=== PATIENT | female | born 1990 | race Caucasian/White ===

== ENCOUNTER 2018-01-03 05:46 | Inpatient (IN) | payer BC ==
[2017-12-30 11:16] VITALS: BMI 29.8
--- NOTE | 2018-01-02 19:09 | P.HPOB ---
History of Present Illness H&P Date: 01/03/18 Chief Complaint: Breech presentation, primary section This is a 27-year-old female 2 para 1 with an estimated date of confinement of 01/09/2018, estimated gestational age of 39 and one sevenths weeks, who presents to labor and delivery for primary section secondary to breech presentation. She has been getting weekly ultrasounds for position and fluid. Her fluid has been borderline low but her nonstress tests have been reactive. At her last ultrasound, baby was still breech. She admits to good movement. She complains of irregular contractions. labs: Hepatitis B surface antigen-negative RPR-nonreactive Rubella-immune Blood type-A+ Antibody screen-negative HIV-nonreactive Hemoglobin-12.6 Toxoplasma screen-negative Random glucose-96 One hour Glucola-138 Three-hour Glucola-within normal limits Group B streptococcus-negative Obstetrical history: . History of 1 vaginal delivery at term. Gynecologic history: No history of sexual transmitted diseases. Social history: She is . She is currently not working outside the home. Review of Systems Constitutional: Denies chills, Denies fever Eyes: denies blurred vision, denies pain Ears, nose, mouth and throat: Denies headache, Denies sore throat Cardiovascular: Denies chest pain, Denies shortness of breath Respiratory: Denies cough Gastrointestinal: Denies abdominal pain, Denies diarrhea, Denies nausea, Denies vomiting Genitourinary: Reports pelvic pain, Reports Musculoskeletal: Reports low back pain Integumentary: Denies pruritus, Denies rash Neurological: Denies numbness, Denies weakness Psychiatric: Denies anxiety, Denies depression Past Medical History Past Medical History: No Reported History History of Any Multi-Drug Resistant Organisms: None Reported Past Surgical History: No Surgical Hx Reported Additional Past Anesthesia/Blood Transfusion Reaction / Comment(s): Has never had anesthesia. Past Psychological History: No Psychological Hx Reported Smoking Status: Never smoker Past Alcohol Use History: None Reported Past Drug Use History: None Reported - Past Family History Father Additional Family Medical History / Comment(s): Heart disease Medications and Allergies Home Medications Medication Instructions Recorded Confirmed Type Gah-Latd-Zypem Acid 1 cap PO DAILY 02/15/16 02/16/16 History [-U Capsule (formulary)] Allergies Allergy/AdvReac Type Severity Reaction Status Date / Time No Known Allergies Allergy Verified 12/30/17 11:05 Exam Osteopathic Statement: *. No significant issues noted on an osteopathic structural exam other than those noted in the History and Physical/Consult. HEENT: Within normal limits Heart: Regular rate and rhythm Lungs: Clear to auscultation bilaterally Abdomen: Soft, Cervix: Fingertip/60%/-3 heart tones: 150s by Doppler Extremities: Negative Homans Assessment and Plan (1) 39 weeks gestation of Status: Acute Code(s): Z3A.39 - 39 WEEKS GESTATION OF SNOMED Code( s): 35148968 (2) Breech presentation Status: Acute Code(s): O32.1XX0 - MATERNAL CARE FOR BREECH PRESENTATION, UNSP SNOMED Code(s): 9965092 Plan: Proceed with primary low transverse section. I have discussed the risks, benefits, and alternative therapies for the above- mentioned procedure and for both sedation/anesthesia as well as necessary blood products administration, if indicated, as they pertain to this patient. The patient has indicated her understanding and acceptance of the risks and procedures discussed.
[2018-01-03] MEDS ORDERED: ceFAZolin IN SWFI 2 GM/20 ML SYRINGE IVP ONE (06:00)
[2018-01-03] MEDS ORDERED: CITRIC ACID-SODIUM CITRATE 15 ML CUP PO ONE (06:00)
[2018-01-03] MEDS ORDERED: LACTATED RINGERS 1,000 ML IV ONE (06:00)
[2018-01-03 06:23] LABS: Basophils # (A) 0.1 k/uL (0-0.2); Basophils % (A) 1 %; Eosinophils # (A) 0.2 k/uL (0-0.7); Eosinophils % (A) 2 %; HCT 33.4 % (34.0-46.0); Lymphocytes # (A) 2.1 k/uL (1.0-4.8); Lymphocytes % (A) 17 %; MCH 27.4 pg (25.0-35.0); MCV 82.9 fL (80.0-100.0); Mean Platelet Volume 7.2; Monocytes # (A) 0.7 k/uL (0-1.0); Monocytes % (A) 6 %; Neutrophils # (A) 9.3 k/uL (1.3-7.7); Neutrophils % (A) 74 %; Platelet Count 289 k/uL (150-450); RBC 4.02 m/uL (3.80-5.40); RDW 13.6 % (11.5-15.5); WBC 12.7 k/uL (3.8-10.6)
[2018-01-03] MEDS ORDERED: NALBUPHINE 10 MG/ML VIAL (10ML MDV) ONE (08:09)
[2018-01-03] MEDS ORDERED: KETOROLAC 30 MG/ML 1 ML VIAL ONE (08:09)
[2018-01-03] MEDS ORDERED: ONDANSETRON 4 MG/2 ML VIAL ONE (08:09)
[2018-01-03] MEDS ORDERED: ePHEDrine SULFATE/0.9% NACL/PF 50 MG/5 ML SYRINGE IV ONE (08:09)
[2018-01-03] MEDS ORDERED: OXYTOCIN 10 UNIT/ML 1 ML VIAL ONE (08:09)
--- NOTE | 2018-01-03 08:52 | P.OP ---
Date of Procedure: 01/03/18 Preoperative Diagnosis: 1. Intrauterine at 39 and one sevenths weeks. 2. Breech presentation. 3. And borderline oligohydramnios. Postoperative Diagnosis: Same Procedure(s) Performed: Primary low transverse section Anesthesia: spinal (Duramorph) Surgeon: Ne Harris Facility Assistant #1: Dutch Orozco Estimated Blood Loss (ml): 500 Pathology: other (Placenta) Condition: stable Disposition: floor Indications for Procedure: This is a 27-year-old female 2 para 1 at 39 and one sevenths weeks who presents for primary section secondary to breech presentation and borderline oligohydramnios. I have discussed the risks, benefits, and alternative therapies for the above- mentioned procedure and for both sedation/anesthesia as well as necessary blood products administration, if indicated, as they pertain to this patient. The patient has indicated her understanding and acceptance of the risks and procedures discussed. Operative Findings: A viable male infant is noted in the lore breech presentation with scores of 9 at 1 minute and 9 at 5 minutes and weight of 7 lbs. 12 oz. Normal uterus tubes and ovaries are noted. Description of Procedure: The patient is taken to the operating room where she is placed in the dorsal supine position with leftward tilt after spinal Duramorph anesthesia is given. She is prepped and draped in the normal sterile fashion. Skin was tested and found to be adequately anesthetized. A Pfannenstiel skin incision was made with a scalpel. A second knife was used to carry the incision down to the underlying layer of fascia. The fascia was nicked in the midline with a scalpel and then extended laterally bilaterally with Heard scissors. The anterior lip of the fascia was grasped with 2 Hung clamps and then dissected off the underlying rectus muscle in the midline with Heard scissors. The inferior aspect of the fascial incision was grasped with 2 Hung clamps and dissected off the underlying rectus muscle and the midline with Heard scissors. Next the peritoneum layer was tented up with 2 hemostats and then entered sharply with the scalpel. The incision is extended superiorly and inferiorly with Metzenbaum scissors. Next a DeLee retractor is placed. The vesicouterine peritoneum is entered sharply with Metzenbaum scissors and extended laterally bilaterally with Metzenbaum scissors and then the bladder flap is pushed inferiorly. The lower uterine segment is incised in transverse fashion with the scalpel and then bluntly entered with a hemostat. Clear fluid is noted. The incision was then extended laterally bilaterally with 2 fingers. Next the 's buttocks is delivered through the incision. The remainder of the infant is then delivered with each foot followed by the arms in a flexed position and the head in a flexed position. Nose and mouth are bulb suctioned. Cord is clamped and cut. is taken to warmer by nursing staff. Uterine fundus is gently massaged and placenta is delivered manually. Uterus is exteriorized and cleared of all clots and debris. Uterine incision is closed with 0 Vicryl suture in a running locked fashion. A second layer of 0 Vicryl suture is used in a running fashion for hemostasis. Once adequate hemostasis as assured, the vesicouterine peritoneum is reapproximated with 2-0 Vicryl suture in a running fashion. Posterior cul-de-sac is suctioned of all clots and debris. Uterus is returned to the abdomen. Incision is noted to be hemostatic. Peritoneal layer is closed with 0 Vicryl suture in a running fashion. Muscle layer is reapproximated with 0 Vicryl suture in interrupted fashion. Fascia layer is then closed with 0 PDS suture with 2 sutures meeting in the midline and the knots buried in either side and in the midline. The subcutaneous tissue was then closed with 2-0 Vicryl suture. Skin layer was then closed with koki. All sponge and needle counts are correct. The patient is taken to recovery room in stable condition.
[2018-01-03] MEDS ORDERED: SIMETHICONE 80 MG CHEWABLE PO PRN (08:57)
[2018-01-03] MEDS ORDERED: diphenhydrAMINE 50 MG CAP PO PRN (08:57)
[2018-01-03] MEDS ORDERED: HYDROcodone/APAP 7.5-325MG 1 EACH TAB PO PRN (08:57)
[2018-01-03] MEDS ORDERED: LANOLIN CREAM 5 GM TUBE TOPICAL PRN (08:57)
[2018-01-03] MEDS ORDERED: METOCLOPRAMIDE 5 MG/ML 2 ML VIAL IVP PRN (08:57)
[2018-01-03] MEDS ORDERED: diphenhydrAMINE 25 MG CAP PO PRN (08:57)
[2018-01-03] MEDS ORDERED: ACETAMINOPHEN TAB 325 MG TAB PO PRN (08:57)
[2018-01-03] MEDS ORDERED: ONDANSETRON 4 MG/2 ML VIAL IVP PRN (08:57)
[2018-01-03] MEDS ORDERED: NALOXONE 0.4 MG/ML 1 ML VIAL IV PRN ×2 (08:57→09:06)
[2018-01-03] MEDS ORDERED: diphenhydrAMINE 50 MG/ML 1 ML VIAL IVP PRN ×2 (08:57)
[2018-01-03] MEDS ORDERED: ZOLPIDEM 5 MG TAB PO PRN (08:57)
[2018-01-03] MEDS: SENNOSIDES-DOCUSATE SODIUM 1 EACH TAB PO SCH ×2 (10:37→20:24)
[2018-01-03] MEDS: LACTATED RINGERS 1,000 ML IV SCH ×3 (13:08→22:32)
[2018-01-03] MEDS: KETOROLAC 30 MG/ML 1 ML VIAL IVP PRN ×2 (16:37→22:32)
--- NOTE | 2018-01-04 06:43 | P.PN ---
Progress Note - Text Progress Note Date: 01/04/18 Postoperative day 1 status post section under spinal anesthesia and intrathecal Duramorph for postoperative analgesia.The patient is doing well, there is mild generalized skin itching. There are no other anesthesia related complications. Further management as per the patient primary team.
[2018-01-04] MEDS: KETOROLAC 30 MG/ML 1 ML VIAL IVP PRN (06:51)
[2018-01-04] MEDS: LACTATED RINGERS 1,000 ML IV SCH ×2 (07:41→16:21)
--- NOTE | 2018-01-04 07:53 | P.PNOBGPC ---
Subjective - Subjective Principal diagnosis: Status post primary section postoperative day #1 Interval history: Patient is doing well. She is ambulating. She has not passed flatus yet. She is urinating. Pain is fairly well controlled. Patient reports: Reports appetite normal, Reports voiding normally, Reports pain well controlled, Reports ambulating normally : doing well Objective - Vital Signs Latest vital signs: Vital Signs Temp Pulse Resp BP Pulse Ox 01/04/18 06:00 16 01/04/18 04:10 98.1 F 76 16 119/67 100 01/03/18 22:00 16 01/03/18 20:00 98.2 F 98 16 120/69 98 01/03/18 18:00 16 99 01/03/18 16:00 98.1 F 74 15 119/71 97 01/03/18 14:06 97 01/03/18 14:00 16 01/03/18 12:06 16 01/03/18 12:00 97.2 F L 79 16 113/67 97 01/03/18 10:56 96.5 F L 76 16 106/59 98 01/03/18 10:26 68 16 104/57 99 01/03/18 10:06 61 16 99 01/03/18 09:56 98.1 F 69 16 108/58 98 01/03/18 09:41 69 16 107/58 99 01/03/18 09:26 71 16 111/62 95 01/03/18 09:11 71 16 113/58 100 01/03/18 09:06 71 16 99 01/03/18 08:56 97.6 F 76 16 122/57 99 Intake and Output 01/03/18 01/04/18 01/04/18 22:59 06:59 14:59 Intake Total 1000 Output Total 800 1800 Balance 200 -1800 Intake: Intake, IV Titration 1000 Amount Lactated Ringers 1,000 ml 1000 @ 4000 mls/hr IV .Q15M ONE Rx#:[id number] Output: Urine 800 1800 Other: # Voids 1 - Exam Extremities: Present: normal, edema (Trace). Absent: tenderness Abdomen: Present: normal appearance, soft. Absent: distention, tenderness Incision: Present: normal, dry, intact. Absent: erythematous Uterus: Present: normal, firm. Absent: tenderness Assessment and Plan Assessment: Impression is status post primary section postoperative day #1. (1) 39 weeks gestation of Current Visit: No Status: Acute Code(s): Z3A.39 - 39 WEEKS GESTATION OF SNOMED Code(s): 02213664 (2) Breech presentation Current Visit: No Status: Acute Code(s): O32.1XX0 - MATERNAL CARE FOR BREECH PRESENTATION, UNSP SNOMED Code(s): 9808752 Plan: Will continue with postoperative care. Will advance diet as tolerated after flatus.
[2018-01-04 07:55] LABS: Basophils % (A) 0 %; Eosinophils # (A) 0.2 k/uL (0-0.7); Eosinophils % (A) 1 %; HCT 32.2 % (34.0-46.0); HGB 10.8 gm/dL (11.4-16.0); Lymphocytes # (A) 1.5 k/uL (1.0-4.8); Lymphocytes % (A) 11 %; MCH 28.3 pg (25.0-35.0); MCHC 33.5 g/dL (31.0-37.0); MCV 84.5 fL (80.0-100.0); Monocytes # (A) 0.8 k/uL (0-1.0); Monocytes % (A) 6 %; Neutrophils # (A) 10.7 k/uL (1.3-7.7); Neutrophils % (A) 80 %; Platelet Count 265 k/uL (150-450); RBC 3.82 m/uL (3.80-5.40); RDW 13.8 % (11.5-15.5); WBC 13.4 k/uL (3.8-10.6)
[2018-01-04] MEDS: SENNOSIDES-DOCUSATE SODIUM 1 EACH TAB PO SCH ×2 (08:31→19:53)
[2018-01-04] MEDS: HYDROcodone/APAP 5-325MG 1 EACH TAB PO PRN ×2 (11:11→17:57)
[2018-01-04] MEDS: IBUPROFEN 600 MG TAB PO PRN ×2 (14:06→21:01)
[2018-01-05 00:02] VITALS: RESP 16; TEMP 97.9
[2018-01-05] MEDS: HYDROcodone/APAP 5-325MG 1 EACH TAB PO PRN ×3 (00:20→12:20)
[2018-01-05] MEDS: IBUPROFEN 600 MG TAB PO PRN ×2 (03:02→09:01)
[2018-01-05] MEDS: SENNOSIDES-DOCUSATE SODIUM 1 EACH TAB PO SCH (08:56)
--- NOTE | 2018-01-05 08:59 | P.DS ---
Providers Date of admission: 01/03/18 05:46 Expected date of discharge: 01/05/18 Attending physician: Ne Harris Primary care physician: Stated None - Discharge Diagnosis(es) (1) 39 weeks gestation of Current Visit: No Status: Acute (2) Breech presentation Current Visit: No Status: Acute Hospital Course: This is a 27-year-old female 2 para 1 at 39 and one sevenths weeks who underwent a primary section due to breech presentation. She delivered a viable male infant in the breech presentation with scores of 9 at 1 minute and 9 at 5 minutes and weight of 7 lbs. 12 oz. Her postoperative course has been essentially uncomplicated. She is passing flatus but no bowel movement. She is ambulating and urinating without difficulty. Her pain is well -controlled with ibuprofen and [place]. Vital signs are stable. Abdomen is soft with positive bowel sounds 4. Incision is clean dry and intact. Extremities show negative Homans. Impression is status post primary section postoperative day #2. Plan is to discharge home today. Routine and postoperative instructions are given. She will be given a prescription for ibuprofen and [place]. She is counseled on narcotic use and did sign the start narcotic form. She is advised to follow up in the office in 6 weeks for her visit and in 1 week for a postoperative visit. Welch will be removed and Steri-Strips placed prior to discharge. She is advised to call the office if she has any further questions or concerns prior to her appointment time. Procedures: Primary low transverse section on 01/03/2018 Patient Condition at Discharge: Stable Plan - Discharge Summary New Discharge Prescriptions: New HYDROcodone/APAP 5-325MG [[place] 5-325] 1 each PO Q4HR PRN #18 tab PRN Reason: Moderate Pain Ibuprofen [Motrin] 600 mg PO Q6HR PRN #60 tab PRN Reason: Mild Pain Or Fever >= 100.5 Continue Zin-Mtki-Hgsxv Acid [-U Capsule (formulary)] 1 cap PO DAILY Discharge Medication List Xvy-Obth-Jkkox Acid [-U Capsule (formulary)] 1 cap PO DAILY [History] HYDROcodone/APAP 5-325MG [[place] 5-325] 1 each PO Q4HR PRN #18 tab 07/19/18 [Rx] Ibuprofen [Motrin] 600 mg PO Q6HR PRN #60 tab 01/05/18 [Rx] Follow up Appointment(s)/Referral(s): Ne Harris DO [Doctor of Osteopathic Medicine] - 1 Week Activity/Diet/Wound Care/Special Instructions: Instructions 1. Do not begin any exercise program for 3 weeks. 2. Do not resume sexual relations for 3 weeks or longer if uncomfortable. 3. You may take tub baths or showers at any time. 4. You may use tampons if desired after 3 weeks. 5. Keep the area of episiotomy (stitches) clean and dry. 6. If you are not nursing, wear a good fitting, supportive bra during the day and limit fluid intake for at least 1 week to prevent breast engorgement. 7. Call the office, [phone], within the next week to make appointment for your 6 week checkup if it has not already been made. 8. Report any of the following occurrences to the doctor promptly: a. Heavy, excessive bleeding b. Chills, fever c. Burning or frequency of urination d. Pain or redness and breasts if nursing e. Increasing pain or swelling in episiotomy (stitches). In addition to the above instructions, the following additional should be followed: 1. No heavy lifting or straining (exercising) until after 6 week checkup. 2. Keep abdominal incision clean and dry: You may wear a dressing if more comfortable. 3. Make office appointment for 10 days after going home or as instructed by her doctor. Discharge Disposition: HOME SELF-CARE
[2018-01-05 09:52] VITALS: BP 110/62; PULSE 80
== END 2018-01-05 13:40 | disposition home or self-care (01) | DRG 765 ==
LOC: 4FBP 05:46
PROVIDERS: ADMIT Obstetrics & Gynecology; ATTEND Obstetrics & Gynecology
PROC: 10D00Z1 Extraction of Products of Conception, Low, Open Approach (ICD-10-PCS; principal; 2018-01-03 08:24)
DX: O32.1XX0 Maternal care for breech presentation, not applicable or unspecified (principal); O41.03X0 Oligohydramnios, third trimester, not applicable or unspecified; Z37.0 Single live birth; Z3A.39 39 weeks gestation of pregnancy
CPT/HCPCS: 85025; 86850; 86900; 86901; 88307